=== PATIENT | female | born 1950 | race Two or more races ===

== ENCOUNTER 2021-10-17 06:21 | Day surgery (SDC) | payer OTHER ==
[~2021-10-17] VITALS: Ht 157.5 cm; Wt 58.5 kg
[~2021-10-17 06:21] MED LIST: SYMBICORT 16010.2 GM IH
== END 2021-10-17 11:55 | disposition home or self-care (01) ==
LOC: CIR.AMB 06:21
PROVIDERS: ATTEND Obstetrics & Gynecology
DX: N83.312 Acquired atrophy of left ovary (principal); N83.311 Acquired atrophy of right ovary; N83.8 Other noninflammatory disorders of ovary, fallopian tube and broad ligament; Z20.822 Contact with and (suspected) exposure to COVID-19; Z88.6 Allergy status to analgesic agent; J45.909 Unspecified asthma, uncomplicated; Z87.891 Personal history of nicotine dependence; Z99.89 Dependence on other enabling machines and devices; G47.33 Obstructive sleep apnea (adult) (pediatric)

== ENCOUNTER 2022-12-20 08:04 | Outpatient (CLI) | payer OTHER | END 2022-12-20 08:17 | disposition home or self-care (01) | LOC: SONOGRAMA 08:04 | PROVIDERS: ATTEND Internal Medicine Gastroenterology | DX: R16.0 Hepatomegaly, not elsewhere classified (principal); Z88.6 Allergy status to analgesic agent ==